=== PATIENT | female | born 1950 | race Caucasian/White ===

== ENCOUNTER → 2023-04-05 11:12 | Outpatient (CLI) | payer MEDICARE, OTHER, SELFPAY ==
[2023-04-05 12:15] LABS: Creatinine Urine Random 147.9 mg/dL
[2023-04-05 12:18] LABS: BUN Creatinine Ratio 21.4 (6-22); Blood Urea Nitrogen 21 mg/dL (7-17); Calcium 9.3 mg/dL (8.4-10.2); Carbon Dioxide 31 mmol/L (22-32); Chloride 102 mmol/L (98-107); Estimated Glomerular Filt Rate > 60 mL/min (>60); Glucose 84 mg/dL (80-110); HEMOLYSIS < 15 (0-50); Potassium 4.7 mmol/L (3.4-5.1); Sodium 139 mmol/L (137-145)
[2023-04-05 12:43] LABS: Microalbumin Urine Random < 0.6 mg/dL (0-1.6)
[2023-04-06 06:05] LABS: Labcorp Hemoglobin (Hb) A1c 6.4 % (4.8-5.6)
== END ==
PROVIDERS: PCP Family Medicine; Referring Provider Family Medicine; Visit Provider Family Medicine
DX: I10 Essential (primary) hypertension (principal); E11.9 Type 2 diabetes mellitus without complications
CPT/HCPCS: 36415; 80048; 82043; 82570; 83036

== ENCOUNTER → 2023-04-27 09:23 | Outpatient (CLI) | payer MEDICARE, OTHER, SELFPAY ==
--- NOTE | 2023-04-27 09:23 | DI.ECHO.S_ITS ---
[facility] +---------+ : : [address] : : : : [id number] : : : : Phone: [phone]+ Echocardiogram Report + + :Name: URSZULA COMBS Study Date: 04/27/2023 Height: 63 in : :[facility] ReadingLocation: Weight: 170 lb : : Gender: Female BSA: 1.8 m2 : :: 1950 Age: 72 yrs BP: 129/62 mmHg: :Reason For Study: CHEST PAIN : :Ordering Physician: ZEN GILBERTPerformed By: [place] Nicole : :Referring: ZEN GILBERT : + + Interpretation Summary The ejection fraction is estimated to be 60-65%. Diastolic parameters suggest probable normal left ventricular diastolic function and normal filling pressures. The right ventricle is normal in size and function. There is mild tricuspid regurgitation. The right ventricular systolic pressure is estimated to be at least 35 mmHg based on an estimated right atrial pressure of 8 mm Hg. Procedure: A two-dimensional transthoracic echocardiogram with color flow and Doppler was performed. The study quality was technically adequate. There is no prior echocardiogram noted for this patient. The patient was in sinus rhythm with heart rates between 56-61 bpm during the exam. Left Ventricle: The left ventricle is normal in size and wall thickness. The ejection fraction is estimated to be 60-65%. Diastolic parameters suggest probable normal left ventricular diastolic function and normal filling pressures. Right Ventricle: The right ventricle is normal in size and function. Atria: The left atrial size is normal. Right atrial size is normal. There is no Doppler evidence for an interatrial shunt. Mitral Valve: The mitral valve is normal in structure and function. There is mild mitral annular calcification. There is trace mitral regurgitation. Aortic Valve: The aortic valve is trileaflet. The aortic valve opens well. The aortic valve is slightly calcified. There is no aortic valve stenosis. No aortic regurgitation is present. Tricuspid Valve: The tricuspid valve is normal in structure and function. There is mild tricuspid regurgitation. The right ventricular systolic pressure is estimated to be at least 35 mmHg based on an estimated right atrial pressure of 8 mm Hg. Pulmonic Valve: The pulmonic valve leaflets are thin and pliable; valve motion is normal. There is mild pulmonic regurgitation. Great Vessels: The aortic root is normal size. The dimensions of the ascending aorta are normal. The IVC is dilated (diameter is greater than 2.1 cm) yet it collapses greater than 50% with a sniff. This suggests a right atrial pressure of 8 mm Hg. Pericardium/ Pleura There is no pericardial effusion. There is no pleural effusion. MMode/2D Measurements & Calculations LVIDd: 4.4 cm LVOT diam: 2.1 cm LVIDs: 2.5 cm Ao root diam: 2.6 cm FS: 42.6 % asc Aorta Diam: 2.9 cm EPSS: 0.23 cm Ao Arch Diam (Prox Trans): 2.9 cm IVSd: 0.83 cm LVPWd: 0.73 cm LV munguia. diameter/BSA (cm/m^2): 2.4 LV sys. diameter/BSA (cm/m^2): 1.4 LA A2 area: 16.7 cm2 RA long axis: 4.9 cm LA A4 area: 17.3 cm2 RA area: 14.3 cm2 LA length (vol): 5.5 cm RA vol: 35.4 ml LA vol: 44.7 ml RA : 19.6 ml/m2 LA vol index: 24.8 ml/m2 IVC diam: 2.2 cm RVD1 (basal): 3.7 cm RVD2 (mid): 3.1 cm TAPSE: 2.2 cm Doppler Measurements & Calculations Ao V2 max: 144.7 cm/sec LVOT Max Prieto: 107.5 cm/sec Ao V2 mean: 97.8 cm/sec LV V1 max P.6 mmHg Ao max P.4 mmHg LV V1 VTI: 25.9 cm Ao mean P.3 mmHg BRODERICK(I,D): 2.5 cm2 Ao V2 VTI: 34.6 cm BRODERICK(V,D): 2.5 cm2 sev ratio: 0.75 BRODERICK indexed to BSA (cm^2/m^2): 1.4 MV E max prieto: 90.4 cm/sec TR max prieto: 259.8 cm/sec MV A max prieto: 84.5 cm/sec TR max P.0 mmHg MV E/A: 1.1 PA V2 max: 89.0 cm/sec Med Peak E' Prieto: 6.4 cm/sec PA V2 mean: 61.5 cm/sec E/E' med: 14.2 PA mean P.7 mmHg Lat Peak E' Prieto: 8.2 cm/sec PA pr(Accel): 24.2 mmHg E/E' lat: 11.0 E/e' average: 12.6 MV dec time: 0.22 sec Pulm A Revs Prieto: 22.8 cm/sec SV(LVOT): 87.3 ml Pulm A Revs Dur: 0.13 sec Reading Physician:11:32 AM
== END ==
PROVIDERS: PCP Family Medicine; Referring Provider Family Medicine; Visit Provider Family Medicine
DX: I08.1 Rheumatic disorders of both mitral and tricuspid valves (principal); R07.89 Other chest pain; I10 Essential (primary) hypertension
CPT/HCPCS: 93306

== ENCOUNTER → 2023-10-10 12:09 | Outpatient (CLI) | payer MEDICARE, OTHER, SELFPAY ==
[2023-10-10 12:49] LABS: Add Manual Diff / Slide Review NO; Basophils Absolute Auto 0 /uL (0-100); Basophils Percent Auto 0.4 % (0-2); Eosinophils Absolute Auto 0 /uL (0-450); Eosinophils Percent Auto 0.8 % (2-4); Hematocrit 33.6 % (36-46); Hemoglobin 11.3 g/dL (12.0-16.0); Lymphocytes Absolute Auto 1200 /uL (1100-4500); Lymphocytes Percent Auto 20.6 % (25-40); Mean Corpuscular HGB Conc 33.8 % (30-36); Mean Corpuscular Hemoglobin 30.4 PG (26-34); Mean Corpuscular Volume 89.8 fL (80-100); Monocytes Absolute Auto 600 /uL (0-900); Monocytes Percent Auto 9.9 % (3-14); Neutrophils Absolute Auto 4100 /uL (1500-7000); Neutrophils Percent Auto 68.3 % (50-75); Platelet Count 199 X10^3/uL (150-400); Red Blood Cell Count 3.74 X10^6/uL (4.0-5.2); Red Cell Distribution Width 14.2 % (11.6-14.8)
[2023-10-10 13:01] LABS: Urine Volume 10mL (spun)
[2023-10-10 13:39] LABS: Alanine Aminotransferase 19 IU/L (<35); Albumin 4.1 g/dL (3.5-5.0); Albumin Globulin Ratio 1.2 (1.0-2.8); Alkaline Phosphatase 71 U/L (38-126); Aspartate Aminotransferase 20 IU/L (14-36); BUN Creatinine Ratio 24.7 (6-22); Bilirubin Total 0.5 mg/dL (0.2-1.3); Blood Urea Nitrogen 22 mg/dL (7-17); Calcium 9.3 mg/dL (8.4-10.2); Carbon Dioxide 26 mmol/L (22-32); Chloride 103 mmol/L (98-107); Cholesterol 156 mg/dL (140-199); Estimated Glomerular Filt Rate > 60 mL/min (>60); Globulin 3.3 g/dL (1.7-4.1); Glucose 111 mg/dL (80-110); HDL Cholesterol 61 mg/dL (40-60); HEMOLYSIS < 15 (0-50); LDL Cholesterol Calculated 68 mg/dL (<100); Potassium 4.5 mmol/L (3.4-5.1); Sodium 138 mmol/L (137-145); Total Protein 7.4 g/dL (6.3-8.2); Triglycerides 137 mg/dL (35-150)
[2023-10-10 13:46] LABS: TSH w/ Reflex to FT4 2.01 uIU/mL (0.47-4.68)
[2023-10-10 14:04] LABS: Appearance Urine UA CLEAR; Bilirubin Urine UA 1+ (NEGATIVE); Color Urine UA YELLOW; Glucose Urine UA NEGATIVE (Negative); Ketones Urine UA TRACE (NEGATIVE); Leukocyte Esterase Urine UA NEGATIVE (NEGATIVE); Nitrite Urine UA NEGATIVE (Negative); Occult Blood Urine UA NEGATIVE (Negative); Protein Urine UA TRACE (Negative); Specific Gravity Urine UA >=1.030 (1.000-1.035)
[2023-10-10 14:17] LABS: Bacteria Urine None Seen; RBC Urine None Seen (0-5/HPF); WBC Urine 0-1/HPF (0-5/HPF)
[2023-10-10 14:18] LABS: Culture Indicated Urine Cult Not Indicated; Mucus Urine 1+ (Negative); Squamous Epithelial Cell Urine 1-5 /HPF (0-5/HPF)
[2023-10-10 14:35] LABS: Hemoglobin A1C% w Est Avg Glu 6.2 % (4.0-6.0)
== END ==
PROVIDERS: PCP Family Medicine; Referring Provider Family Medicine; Visit Provider Family Medicine
DX: E03.9 Hypothyroidism, unspecified (principal); E11.9 Type 2 diabetes mellitus without complications; I10 Essential (primary) hypertension; K57.92 Diverticulitis of intestine, part unspecified, without perforation or abscess without bleeding; Z00.00 Encounter for general adult medical examination without abnormal findings
CPT/HCPCS: 36415; 80053; 80061; 81001; 83036; 84443; 85025

== ENCOUNTER → 2023-10-11 13:11 | Outpatient (CLI) | payer MEDICARE, OTHER, SELFPAY ==
--- NOTE | 2023-10-11 13:12 | DI.CT.S_ITS ---
PROCEDURE: CT ABDOMEN PELVIS W CON INDICATIONS: diverticulitis TECHNIQUE: After the administration of intravenous contrast, axial sections acquired from the lung bases to the pubic symphysis. Coronal and sagittal reformats were performed. For radiation dose reduction, the following was used: automated exposure control, adjustment of mA and/or kV according to patient size. COMPARISON: None. FINDINGS: Image quality: Diagnostic. Lower Chest: No significant findings. ABDOMEN: Liver: No solid mass. Gallbladder: No radiopaque gallstones or wall thickening. Biliary ducts: No biliary dilation. Pancreas: No ductal dilation. Spleen: Size is within normal limits. Adrenal Glands: No adrenal nodules. Kidneys and Ureters: No hydronephrosis. No solid mass. No complex renal cystic lesion which requires follow up. Stomach and Bowel: Sigmoid colonic diverticulitis, with pericolonic fat stranding and wall thickening. No adjacent abscess. Peritoneum: Trace free fluid adjacent to the inflamed colon. No free air. Ventral Wall: No hernia. Abdominal Nodes: No retroperitoneal or mesenteric adenopathy by size criteria. Vessels: Aorta and inferior vena cava are normal in size. PELVIS: Pelvic Organs: Unremarkable. Bladder: Unremarkable. Pelvic Nodes: No enlarged lymph nodes. Miscellaneous: No inguinal hernias are seen. Bones: No aggressive osseous abnormality. IMPRESSION: Uncomplicated sigmoid colonic diverticulitis. No evidence perforation. Dictated by: Ty Juarez M.D. on 10/11/2023 at 14:14 Approved by: Ty Juarez M.D. on 10/11/2023 at 14:16
== END ==
PROVIDERS: PCP Family Medicine; Referring Provider Family Medicine; Visit Provider Family Medicine
DX: K57.32 Diverticulitis of large intestine without perforation or abscess without bleeding (principal)
CPT/HCPCS: 74177; Q9967

== ENCOUNTER → 2023-10-25 12:46 | Outpatient (CLI) | payer MEDICARE, OTHER, SELFPAY ==
--- NOTE | 2023-10-25 12:50 | DI.MG.S_ITS ---
BILATERAL DIGITAL SCREENING MAMMOGRAM 3D/2D WITH CAD POST LUMPECTOMY: 10/25/2023 CLINICAL: Routine screening. Family history of breast cancer. Breast cancer. Comparison is made to exams dated: 03/03/2023 mammogram, 09/30/2022 mammogram, and 02/11/2022 mammogram - outside location. Both breasts are heterogeneously dense, which may obscure small masses (category c / 51-75% glandular tissue). Current study was also evaluated with a Computer Aided Detection (CAD) system. There are benign vascular calcifications in both breasts. There also are benign post operative findings in the right breast. No significant masses, calcifications, or other findings are seen in either breast. There has been no significant interval change. IMPRESSION: BENIGN There is no mammographic evidence of malignancy. A 1 year screening mammogram is recommended. This exam was interpreted at Station ID: [id number]. NOTE: For mammograms, a report in lay terms will be sent to the patient. Approximately 15% of breast malignancies will not be visualized mammographically. In the management of a palpable breast mass, a negative mammogram must not discourage biopsy of a clinically suspicious lesion. Electronically Signed By: Simba núñez/sage:10/25/2023 13:47:25 letter sent: Normal Exam ACR BI-RADS Category 2: Benign Finding(s) 3342F
== END ==
LOC: MAMMO 12:47
PROVIDERS: PCP Family Medicine; Referring Provider Family Medicine; Visit Provider Family Medicine
DX: Z12.31 Encounter for screening mammogram for malignant neoplasm of breast (principal); C50.919 Malignant neoplasm of unspecified site of unspecified female breast; R92.333 Mammographic heterogeneous density, bilateral breasts; Z80.3 Family history of malignant neoplasm of breast
CPT/HCPCS: 77063; 77067

== ENCOUNTER → 2024-01-05 10:09 | Outpatient (CLI) | payer MEDICARE, OTHER, SELFPAY ==
[2024-01-05 11:53] LABS: Add Manual Diff / Slide Review NO; Basophils Absolute Auto 0 /uL (0-100); Basophils Percent Auto 0.7 % (0-2); Eosinophils Absolute Auto 100 /uL (0-450); Eosinophils Percent Auto 1.6 % (2-4); Hematocrit 36.3 % (36-46); Lymphocytes Absolute Auto 1300 /uL (1100-4500); Lymphocytes Percent Auto 28.4 % (25-40); Mean Corpuscular Hemoglobin 29.8 PG (26-34); Mean Corpuscular Volume 90.1 fL (80-100); Monocytes Absolute Auto 400 /uL (0-900); Monocytes Percent Auto 9.8 % (3-14); Neutrophils Absolute Auto 2600 /uL (1500-7000); Neutrophils Percent Auto 59.5 % (50-75); Platelet Count 183 X10^3/uL (150-400); Red Blood Cell Count 4.03 X10^6/uL (4.0-5.2); Red Cell Distribution Width 13.8 % (11.6-14.8); White Blood Cell Count 4.4 X10^3/uL (4.5-11.0)
[2024-01-05 12:37] LABS: Alanine Aminotransferase 21 IU/L (<35); Albumin 4.2 g/dL (3.5-5.0); Albumin Globulin Ratio 1.6 (1.0-2.8); Alkaline Phosphatase 71 U/L (38-126); Aspartate Aminotransferase 20 IU/L (14-36); BUN Creatinine Ratio 17.4 (6-22); Bilirubin Total 0.4 mg/dL (0.2-1.3); Blood Urea Nitrogen 15 mg/dL (7-17); Calcium 9.4 mg/dL (8.4-10.2); Carbon Dioxide 27 mmol/L (22-32); Chloride 107 mmol/L (98-107); Estimated Glomerular Filt Rate > 60 mL/min (>60); Globulin 2.6 g/dL (1.7-4.1); Glucose 182 mg/dL (80-110); HEMOLYSIS < 15 (0-50); Potassium 4.2 mmol/L (3.4-5.1); Sodium 140 mmol/L (137-145); Total Protein 6.8 g/dL (6.3-8.2)
== END ==
PROVIDERS: PCP Family Medicine; Referring Provider Family Medicine; Visit Provider Family Medicine
DX: K57.92 Diverticulitis of intestine, part unspecified, without perforation or abscess without bleeding (principal)
CPT/HCPCS: 36415; 80053; 85025

== ENCOUNTER → 2024-01-31 11:54 | Outpatient (CLI) | payer MEDICARE, OTHER, SELFPAY ==
--- NOTE | 2024-01-31 | DI.US.S_ITS ---
SECONDLOOK ULTRASOUND OF RIGHT BREAST AND AXILLA: 01/31/2024 CLINICAL: Intermittent pain in right breast. Additional evaluation requested from prior study. Comparison is made to exams dated: 01/31/2024 mammogram, 10/25/2023 mammogram - [facility], 03/03/2023 mammogram, 09/30/2022 mammogram, and 03/24/2022 localization - outside location. Color flow and real-time ultrasound of the right breast and axilla were performed. Wilde scale images of the real-time examination were reviewed. There is a 2.8 cm x 0.9 cm x 2.1 cm oval fluid collection with a mildly thickened wall in the right breast at 1 o'clock anterior depth. This oval fluid collection is anechoic with a well-defined boundary and posterior acoustic enhancement. This correlates with mammography findings at the site of prior surgery and scar. Color flow imaging demonstrates that there is no vascularity present. No significant abnormalities were seen sonographically in the right axilla. IMPRESSION: INCOMPLETE: NEEDS ADDITIONAL IMAGING EVALUATION The 2.8 cm x 0.9 cm x 2.1 cm oval fluid collection in the right breast most likely is a seroma and is probably benign. There is no abnormality seen in the right axilla to correspond with the area of clinical concern and palpable abnormality indicated by triangular marker in the right axilla, however, recommend clinical follow up for persistent or worsening symptoms, or development of any clinically suspicious findings. A follow-up right ultrasound in 6 months is recommended to demonstrate stability. Findings and recommendations were conveyed to the patient during today's evaluation. This exam was interpreted at Station ID: [id number]. Electronically Signed By: Lance hastings/:01/31/2024 16:19:00 Entry: - 02/01/2024 14:40:36 letter sent: Followup Recommended Ultrasound BI-RADS: 0 Indeterminate
--- NOTE | 2024-01-31 | DI.MG.S_ITS ---
BILATERAL DIGITAL DIAGNOSTIC MAMMOGRAM 3D/2D: 01/31/2024 CLINICAL: Palpable left breast lump. Right axillary pain and swelling. Hx of breast cancer. Comparison is made to exams dated: 10/25/2023 mammogram - [facility], 03/03/2023 mammogram, and 09/30/2022 mammogram - outside location. There are scattered areas of fibroglandular density in both breasts (category b / 25%-50% glandular tissue). There is an irregular high density focal asymmetry in the right breast at 12 o'clock middle depth. This is more prominent. There is a post-surgical scar associated with the focal asymmetry. No other significant masses, calcifications, or other findings are seen in either breast. IMPRESSION: INCOMPLETE: NEEDS ADDITIONAL IMAGING EVALUATION The irregular high density focal asymmetry in the right breast most likely is a seroma or a post-surgical scar and is indeterminate. An ultrasound is recommended for further evaluation and is scheduled to immediately follow this examination. There is no abnormality seen in the right axilla to correspond with the area of clinical concern and palpable abnormality indicated by triangular marker, however, ultrasound is recommended for further evaluation and is scheduled to immediately follow this examination. There is no abnormality seen in the left breast to correspond with the area of clinical concern and palpable abnormality indicated by triangular marker in the middle depth in the inner aspect, however, ultrasound is recommended for further evaluation and is scheduled to immediately follow this examination. This exam was interpreted at Station ID: [id number]. NOTE: For mammograms, a report in lay terms will be sent to the patient. Approximately 15% of breast malignancies will not be visualized mammographically. In the management of a palpable breast mass, a negative mammogram must not discourage biopsy of a clinically suspicious lesion. Electronically Signed By: Lance Rodriguez M.D. aty/:01/31/2024 16:11:46 ACR BI-RADS Category 0: Incomplete 3340F
--- NOTE | 2024-01-31 11:55 | DI.US.S_ITS ---
LIMITED ULTRASOUND OF LEFT BREAST: 01/31/2024 CLINICAL: Palpable left breast lump. Palpable left breast lump and focal pain. Comparison is made to exams dated: 01/31/2024 ultrasound, 01/31/2024 mammogram, 10/25/2023 mammogram - [facility], 03/03/2023 mammogram, and 09/30/2022 mammogram - outside location. Real-time ultrasound of the left breast 7-10 o'clock region was performed. No significant abnormalities were seen sonographically in the left breast. IMPRESSION: NEGATIVE There is no sonographic evidence of malignancy. There is no abnormality seen in the left breast to correspond with the area of clinical concern and palpable abnormality indicated by triangular marker in the inner aspect which likely represent normal fibroglandular tissue, however, recommend clinical follow up for persistent or worsening symptoms, or development of any clinically suspicious findings. Findings and recommendations were conveyed to the patient during today's evaluation. Please see separate right breast ultrasound report for additional information and follow up recommendations. This exam was interpreted at Station ID: [id number]. Electronically Signed By: Lance Rodriguez M.D. at/:01/31/2024 16:14:00 Entry: - 02/01/2024 14:47:18 letter sent: Clinical Evaluation Ultrasound BI-RADS: 1 Negative
== END ==
PROVIDERS: PCP Family Medicine; Referring Provider Physician Assistant Medical; Visit Provider Physician Assistant Medical
DX: R92.8 Other abnormal and inconclusive findings on diagnostic imaging of breast (principal); N64.89 Other specified disorders of breast; R92.323 Mammographic fibroglandular density, bilateral breasts; R59.0 Localized enlarged lymph nodes; Z85.3 Personal history of malignant neoplasm of breast
CPT/HCPCS: 76642; 77066; G0279

== ENCOUNTER 2024-03-09 07:28 | Day surgery (SDC) | payer MEDICARE, OTHER, SELFPAY ==
[2024-03-09 07:49] VITALS: BP 143/66; PULSE 58; RESP 16; TEMP 36.5; O2SAT 98
[2024-03-09] MEDS: LACTATED RINGERS 1,000 ML 42 ML IV (07:57)
--- NOTE | 2024-03-09 08:02 | P.HP_ITS ---
History of Present Illness History of Present Illness Date Patient Seen: 03/09/24 Time Patient Seen: 08:02 Chief complaint: Dx Colonoscopy w/poss bx Narrative: History of colon polyps and father with colon cancer. Last scope was 5 years. Just moved from [place] to here. [facility] Medical History Cystocele Axillary lymphadenopathy History of malignant neoplasm of right breast Encounter for subsequent annual wellness visit (AWV) in Medicare patient Asthma (~1977) Allergies (~1973) Migraines Headache Hip fracture (~2015) Myalgic encephalomyelitis (~1986) Bacterial meningitis (~1955) Measles Chicken pox Recurrent sinusitis Hearing loss Ovarian cyst Kidney stones Hypothyroidism Cardiac arrhythmia (~2002) Atypical chest pain JULI (generalized anxiety disorder) Irritable bowel syndrome Diverticulitis (~2011) Benign essential HTN (~2003) Type 2 diabetes mellitus without complication, with no history of insulin use Breast cancer (~2020) Surgical History Anesthesia History of lumpectomy of right breast History of hip replacement (~12/2015) History of hysterectomy (~10/1981) History of cholecystectomy (~10/1979) History of appendectomy (~04/1979) Family History Father Cancer History of heart disease COPD (chronic obstructive pulmonary disease) Mother Diabetes mellitus History of heart disease Mental health problem Stroke Grandfather History of heart disease Grandmother Breast cancer Stroke Grandfather Cancer Congestive heart failure History of heart disease Grandmother Congestive heart failure History of heart disease Social History Smoking Status: Never smoker alcohol intake: never Meds Home Medications and Allergies Home Medications Medication Instructions Recorded Confirmed Type dicyclomine 10 mg capsule 10 mg PO QID PRN abdominal pain 04/05/23 03/09/24 Rx #90 caps fluticasone propionate 50 1 spray intranasal DAILY 04/05/23 03/09/24 History mcg/actuation nasal spray,suspension amlodipine 5 mg tablet (Norvasc) 5 mg PO DAILY blood pressure #90 10/10/23 03/09/24 Rx tabs atenolol 100 mg tablet 100 mg PO DAILY #90 tabs 10/10/23 03/09/24 Rx irbesartan 150 mg tablet 75 mg (1/2 x 150 mg) PO BID #90 10/10/23 03/09/24 Rx tabs latanoprost 0.005 % eye drops 1 drp EYE-BOTH DAILY 10/10/23 03/09/24 History levothyroxine 25 mcg tablet 25 mcg PO DAILY #90 tabs 10/10/23 03/09/24 Rx lovastatin 40 mg tablet 40 mg PO DAILY #90 tabs 10/10/23 03/09/24 Rx metformin 500 mg tablet,extended 1,000 mg (2 x 500 mg) PO QDAY #90 10/10/23 03/09/24 Rx release 24 hr tabs omeprazole 20 mg capsule,delayed 20 mg PO DAILY #90 caps 10/10/23 03/09/24 Rx release venlafaxine 75 mg tablet,extended 75 mg PO QDAY #90 tabs 10/10/23 03/09/24 Rx release 24 hr acetaminophen 500 mg oral powder 1,000 mg PO Q6H PRN Pain (Scale 01/05/24 03/09/24 History packet (Tylenol Extra Strength) Score 4-6) cholecalciferol (vitamin D3) 250 250 mcg PO DAILY 01/05/24 03/09/24 History mcg (10,000 unit) capsule zinc OTC .Route 01/05/24 01/05/24 History Allergies Allergy/AdvReac Type Severity Reaction Status Date / Time Sulfa (Sulfonamide Allergy Unknown Verified 03/09/24 07:42 Antibiotics) [SULFA (SULFONAMIDE ANTIBIOTICS)] Review of Systems Review of Systems ROS: Yes All systems reviewed with the patient and are negative except as otherwise documented Exam Vital Signs (past 8 hours): - 03/09/24 07:49 Temperature 97.7 F Pulse Rate 58 L Respiratory Rate 16 Blood Pressure 143/66 H Pulse Oximetry 98 Oxygen Delivery Method Room Air Oxygen Flow Rate 0 Oxygen Delivery Method Room Air Oxygen Flow Rate 0 Const General: cooperative, healthy appearing and comfortable Nutritional Appearance: overweight Orientation: alert, awake and oriented x3 HENMT Head: normocephalic and atraumatic Mouth: audible dysphonia Eyes General: appearance normal, both eyes and all related structures Sclera: sclerae normal Neck Neck: trachea midline Resp Effort & Inspection: normal respiratory effort and able to speak in complete sentences Cardio Rate: regular rate Rhythm: regular rhythm GI Palpation: soft and No tender Skin General: no rashes or lesions noted and atrophy Neuro General: patient alert, patient awake and patient oriented x3 Psych Appearance: grossly normal Mental Status: mental status grossly normal Judgment: judgment good Assessment & Plan Assessment & Plan narrative: H/o colon polyp Plan: colonoscopy with anesthesia Time Spent With Patient Time with patient: less than 30 minutes
--- NOTE | 2024-03-09 09:06 | PM.OP.COLON ---
Operative Date/Time/Diagnoses Date of procedure: 03/09/24 Time of procedure: 09:07 Pre-op diagnosis: History of colon polyps. Multiple episodes of diverticulitis Post-op diagnosis: same Procedure & Clinicians Study performed: Colonoscopy with anesthesia Same procedure as scheduled: Yes Indications: History of colon polyp, multiple recurrences of diverticulitis in the last year Surgeon: Marianna Alas Procedure Notes Procedure in detail: Preop diagnosis: History of colon polyp, multiple recurrences of diverticulitis in the last year Postop diagnosis: Same Operative procedure: Colonoscopy with anesthesia Surgeon: Linda Alas MD Findings: No polyps identified. She does however have large multiple diverticuli of the descending colon small diverticuli of the right-sided colon. And what appears to be a rigid, decreased caliber/mild stricture of the sigmoid colon related to the diverticular disease Procedure: Patient placed in lateral position. Rectal exam performed showing normal tone no masses. Colonoscope inserted into the rectum and advanced to ileocecal valve with significant difficulty. Difficulty due to what I feel to be a rigid sigmoid colon possible [id number] stricture related to diverticulosis. Retroflex was included in the procedure during the extraction of the scope with insufflation. Impression: Of severe diverticulosis of large a moderate-sized diverticuli of the descending colon. Mild to moderate mid descending colon stricture benign in nature and related to diverticulosis. Plan: Repeat colonoscopy in 5 years due to self history of colon polyps. And consideration for diagnostic barium enema to determine if sigmoid colectomy is warranted due to symptoms of recurrent diverticulitis. Barium enema is to look for a fixed stricture. She reports she has confirmed diverticulitis on CT scans in the past. Recently removed up from [place]. Findings: divertiulosis Specimen(s): none sent Complications: none Post-procedure Recommendations: Colonoscopy in 5 years Follow up: as needed Disposition: PACU
[2024-03-09 09:07] VITALS: BP 106/49; PULSE 61; RESP 16; TEMP 36.1; O2SAT 99
[2024-03-09 09:12] VITALS: BP 116/52; PULSE 63; RESP 18; O2SAT 98
[2024-03-09 09:17] VITALS: BP 123/46; PULSE 60; RESP 15; TEMP 36.2; O2SAT 97
[2024-03-09 09:45] VITALS: BP 184/73; PULSE 54; RESP 16; TEMP 36.1; O2SAT 97
--- NOTE | 2024-03-09 09:54 | SUR.PHASEII ---
Pt DC to home after getting up to [place] and voided. Steady of feet. Stated she felt a little nauseous and not quite well. Gave apple juice and blood sugar checked for 82. On admit 111. Pt started she felt better and was ready for discharges. VSS.
== END 2024-03-09 09:52 | disposition home or self-care (01) ==
PROVIDERS: PCP Family Medicine; Referring Provider Surgery; Visit Provider Surgery
PROC: 0DJD8ZZ Inspection of Lower Intestinal Tract, Via Natural or Artificial Opening Endoscopic (ICD-10-PCS; CPT 45378; principal; 2024-03-09 08:15)
DX: Z12.11 Encounter for screening for malignant neoplasm of colon (principal); Z86.010 Personal history of colon polyps; K57.30 Diverticulosis of large intestine without perforation or abscess without bleeding; Z80.0 Family history of malignant neoplasm of digestive organs
CPT/HCPCS: G0105; 82962; J2704

== ENCOUNTER → 2024-04-02 13:57 | Outpatient (CLI) | payer MEDICARE, OTHER, SELFPAY ==
[2024-04-02 15:47] LABS: Influenza A - CEPHEID Flu A NEGATIVE (NEGATIVE); Influenza B - CEPHEID Flu B NEGATIVE (NEGATIVE); Respiratory Syncytial Virus Negative (Negative)
[2024-04-02 17:03] LABS: COVID-19 CEPHEID 4-PLEX PCR Negative (Negative)
== END ==
PROVIDERS: PCP Family Medicine; Visit Provider Student in an Organized Health Care Education/Training Program
DX: J02.9 Acute pharyngitis, unspecified (principal); R05.1 Acute cough
CPT/HCPCS: 0241U; 87070

== ENCOUNTER → 2024-08-06 09:50 | Outpatient (CLI) | payer MEDICARE, OTHER, SELFPAY ==
--- NOTE | 2024-08-06 09:51 | DI.US.S_ITS ---
LIMITED ULTRASOUND OF RIGHT BREAST: 08/06/2024 CLINICAL: 6 month follow-up of cysts. Comparison is made to exams dated: 01/31/2024 ultrasound, 01/31/2024 mammogram, 10/25/2023 mammogram - [facility], 03/03/2023 mammogram, and 09/30/2022 mammogram - outside location. Color flow and real-time ultrasound of the right breast 12 o'clock region were performed. Wilde scale images of the real-time examination were reviewed. There is a 2.1 cm x 1 cm x 1.8 cm oval fluid collection with a thickened wall in the right breast at 1 o'clock anterior depth 3 cm from the nipple. This oval fluid collection is anechoic with a well-defined boundary and posterior acoustic enhancement. This abnormality is mildly decreased in size and appears less prominent and correlates with prior mammography findings. Color flow imaging demonstrates that there is no vascularity present. This correlates with area of surgical scar. IMPRESSION: PROBABLY BENIGN The 2.1 cm x 1 cm x 1.8 cm oval fluid collection in the right breast most likely is a seroma and is probably benign. A follow-up bilateral mammogram and a right ultrasound in 6 months is recommended to document stability vs continued resolution. Findings and recommendations were conveyed to the patient during today's evaluation. This exam was interpreted at Station ID: [id number]. Electronically Signed By: Lance Rodriguez M.D. aty/:08/06/2024 16:34:09 letter sent: Followup Recommended ACR BI-RADS Category 3: Probably Benign
== END ==
PROVIDERS: PCP Family Medicine; Referring Provider Physician Assistant Medical; Visit Provider Physician Assistant Medical
DX: N64.89 Other specified disorders of breast (principal); Z85.3 Personal history of malignant neoplasm of breast
CPT/HCPCS: 76642

== ENCOUNTER → 2024-12-12 08:27 | Outpatient (CLI) | payer MEDICARE, OTHER, SELFPAY ==
[2024-12-12 09:41] LABS: Hemoglobin A1C% w Est Avg Glu 5.9 % (4.0-6.0)
[2024-12-12 09:51] LABS: Alanine Aminotransferase 25 IU/L (<35); Albumin 4.2 g/dL (3.5-5.0); Albumin Globulin Ratio 1.6 (1.0-2.8); Alkaline Phosphatase 79 U/L (38-126); Aspartate Aminotransferase 26 IU/L (14-36); BUN Creatinine Ratio 22.1 (6-22); Bilirubin Total 0.4 mg/dL (0.2-1.3); Blood Urea Nitrogen 29 mg/dL (7-17); Calcium 9.2 mg/dL (8.4-10.2); Carbon Dioxide 24 mmol/L (22-32); Chloride 104 mmol/L (98-107); Cholesterol 177 mg/dL (140-199); Estimated Glomerular Filt Rate 43 mL/min (>60); Globulin 2.6 g/dL (1.7-4.1); Glucose 155 mg/dL (80-110); HDL Cholesterol 51 mg/dL (40-60); HEMOLYSIS < 15 (0-50); LDL Cholesterol Calculated 68 mg/dL (<100); Potassium 4.6 mmol/L (3.4-5.1); Sodium 139 mmol/L (137-145); Total Protein 6.8 g/dL (6.3-8.2); Triglycerides 288 mg/dL (35-150)
[2024-12-12 10:25] LABS: TSH w/ Reflex to FT4 1.66 uIU/mL (0.47-4.68)
[2024-12-12 10:39] LABS: Hep C Virus Ab w/Reflex Quant NEGATIVE s/c (NEGATIVE)
== END ==
PROVIDERS: PCP Family Medicine; Referring Provider Family Medicine; Visit Provider Family Medicine
DX: Z00.00 Encounter for general adult medical examination without abnormal findings (principal); E11.9 Type 2 diabetes mellitus without complications; E03.9 Hypothyroidism, unspecified; I10 Essential (primary) hypertension
CPT/HCPCS: 36415; 80053; 80061; 83036; 84443; 86803

== ENCOUNTER → 2025-03-01 13:58 | Outpatient (CLI) | payer MEDICARE, OTHER, SELFPAY ==
[2025-03-01 15:41] LABS: Blood Urea Nitrogen 22 mg/dL (7-17); Calcium 9.2 mg/dL (8.4-10.2); Carbon Dioxide 27 mmol/L (22-32); Chloride 104 mmol/L (98-107); Estimated Glomerular Filt Rate 56 mL/min (>60); Glucose 141 mg/dL (70-99); HEMOLYSIS < 15 (0-50); Potassium 4.8 mmol/L (3.4-5.1); Sodium 139 mmol/L (137-145)
[2025-03-01 15:43] LABS: Creatinine Urine Random 228.98 mg/dL
[2025-03-01 15:46] LABS: Microalbumin Urine Random 0.8 mg/dL (0-1.6)
== END ==
PROVIDERS: PCP Family Medicine; Referring Provider Family Medicine; Visit Provider Family Medicine
DX: N28.9 Disorder of kidney and ureter, unspecified (principal)
CPT/HCPCS: 36415; 80048; 82043; 82570

== ENCOUNTER → 2025-08-20 10:42 | Outpatient (CLI) | payer MEDICARE, OTHER, SELFPAY ==
--- NOTE | 2025-08-20 10:44 | DI.RAD.S_ITS ---
PROCEDURE: XR LUMBAR SPINE 2-3V INDICATIONS: pain TECHNIQUE: 3 views of the lumbar spine were acquired. COMPARISON: None. FINDINGS: Bones: 5 nonrib-bearing vertebrae are present. No acute vertebral body compression fractures. No suspicious bony lesions. Gentle convex-left curvature of the lumbar spine insufficient to meet criteria for scoliosis. No listhesis. Bilateral right greater than left SI joint sclerosis. Partial visualization of the right hip arthroplasty. Multilevel facet sclerosis is most pronounced at L4-5 and L5- S1. Mild multilevel disc narrowing of the lumbar spine. Soft tissues: Overlying bowel gas pattern is normal. Atheromatous calcified plaques noted in the abdominal aorta. Otherwise, no suspicious soft tissue calcifications. IMPRESSION: No acute fracture. Multilevel degenerative disc disease and facet arthropathy as described above. Dictated by: Shraddha Quan M.D. on 08/20/2025 at 23:57 Approved by: Shraddha Quan M.D. on 08/20/2025 at 23:58
--- NOTE | 2025-08-20 10:44 | DI.RAD.S_ITS ---
PROCEDURE: XR HIP W PEL IF DONE LT 2V INDICATIONS: pain TECHNIQUE: 2 views of the hip were acquired. COMPARISON: None. FINDINGS: Bones: No fractures or dislocations. Pelvic ring appears intact. No suspicious bony lesions. Mild left hip joint space narrowing with small osteophytes. Normal alignment of the right hip arthroplasty. Thickening of the proximal right femur cortex noted. No evidence of periprosthetic fracture or loosening in the visualized portions of the right hip arthroplasty. Bilateral SI joint sclerosis. Soft tissues: No suspicious soft tissue calcifications or masses. IMPRESSION: No acute fracture. Mild left hip arthritis. Dictated by: Shraddha Quan M.D. on 08/20/2025 at 23:59 Approved by: Shraddha Quan M.D. on 08/21/2025 at 0:00
== END ==
PROVIDERS: PCP Family Medicine; Referring Provider Family Medicine; Visit Provider Family Medicine
DX: M16.12 Unilateral primary osteoarthritis, left hip (principal); M25.552 Pain in left hip; M51.360 Other intervertebral disc degeneration, lumbar region with discogenic back pain only; M51.370 Other intervertebral disc degeneration, lumbosacral region with discogenic back pain only; M47.816 Spondylosis without myelopathy or radiculopathy, lumbar region; M47.817 Spondylosis without myelopathy or radiculopathy, lumbosacral region; Z96.641 Presence of right artificial hip joint
CPT/HCPCS: 72100; 73502